=== PATIENT | female | born 1985 | race African-American/Black ===

== ENCOUNTER 2016-11-22 08:11 | Emergency (ER) | payer OTHER ==
[~2016-11-22] VITALS: Ht 160 cm; Wt 70.8 kg
--- NOTE | ~2016-11-22 | EKG ---
[place] [address] [place] [address] ELECTROCARDIOGRAM REPORT Name: BILL OLIVER Room #: [facility]#: [id number] Admission: Attend Phys: Discharge: Date of : 87 Report #: [id number] THIS REPORT FOR: //name// 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1985 Requested By: Kasia Alvarado Order Number: [id number] MD: Sanjiv Lentz Measurements Intervals [place] Rate: 101 P: 45 CT: 139 QRS: 20 QRSD: 87 T: 7 QT: 338 QTc: 439 Interpretive Statements Sinus tachycardia RSR' in V1 or V2, probably normal variant Compared to ECG 09/28/2016 00:01:09 RSR' in V1 or V2 now present Electronically Signed On 11-22-2016 8:53:43 MIXING PLANT OPERATOR by Sanjiv Lentz [email or web address] <ELECTRONICALLY SIGNED> By: Sanjiv Lentz MD, [facility] 11/22/1653 0 0 Sanjiv Lentz MD, FACC /EPI
[~2016-11-22 08:11] MED LIST: ACCUNEB SO1.25 MG/1 INH; ADVAIR HFA115 MCG/21 INH; DUONEB 2.5-0.5 M3 ML INH; HYDROCODONE-AP1 EAC6 PO; NABUMETONE 750750 M1 PO; NEBULIZER; PREDNISONE 10 M10 M1 PO; PREDNISONE 20 M20 MG PO; TRAMADOL 50 MG50 MG PO; TRINATE TABLET1 TAB PO; VENTOLIN HFA 1818 GM INH
[2016-11-22 09:12] VITALS: BP 107/67
== END 2016-11-22 09:33 | disposition home or self-care (01) ==
LOC: ER 08:11
DX: I47.1 Supraventricular tachycardia (principal); J45.909 Unspecified asthma, uncomplicated; Z98.890 Other specified postprocedural states

== ENCOUNTER 2016-11-26 15:38 | Emergency (ER) | payer OTHER ==
[~2016-11-26] VITALS: Ht 160 cm; Wt 71.7 kg
--- NOTE | ~2016-11-26 | EKG ---
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 : 1985 Requested By: Amanda Velez Order Number: [id number] MD: Sanjiv Lentz Measurements Intervals [place] Rate: 101 P: 36 [place]: 144 QRS: 13 QRSD: 72 T: 18 QT: 322 QTc: 418 Interpretive Statements Sinus tachycardia RSR' in V1 or V2, probably normal variant Compared to ECG 11/22/2016 08:21:29 No significant changes Electronically Signed On 11-27-2016 7:59:20 SPACE BUYER by Sanjiv Lentz [email or web address] <ELECTRONICALLY SIGNED> By: Sanjiv Lentz MD, [facility] 11/27/16 0759 1548 1548 Sanjiv Lentz MD, FAC /EPI
[2016-11-26] MEDS ORDERED: LABETALOL 100100 MG GT (17:21)
[2016-11-26 17:47] LABS: URINE BILIRUBIN NEGATIVE (Negative); URINE BLOOD 2+ (Negative); URINE COLOR YELLOW; URINE GLUCOSE-RANDOM* NEGATIVE (Negative); URINE KETONES 1+ (Negative); URINE NITRITE NEGATIVE (Negative); URINE PROTEIN (DIPSTICK) NEGATIVE (Negative); URINE SPECIFIC GRAVITY >= 1.030 (1.003-1.035)
[2016-11-26 18:01] LABS: BACTERIA 1-9 Few /HPF (None Seen); CASTS None Seen /LPF (None Seen); CRYSTALS None Seen /LPF (None Seen); SQUAMOUS 4-10 Moderate /LPF (0-3); URINE RBC 3-10 Few /HPF (0-2); URINE WBC 0-5 Rare /HPF (0-5)
[2016-11-26 18:16] VITALS: BP 112/67
[2016-11-28 17:10] LABS: CHLAMYDIA TRACHOMATIS-PCR Negative (Negative); NEISSERIA GONORRHEA-PCR Negative (Negative)
== END 2016-11-26 18:20 | disposition home or self-care (01) ==
LOC: ER 15:38
PROVIDERS: Physician Assistant
DX: O20.0 Threatened abortion (principal); I47.1 Supraventricular tachycardia; J45.909 Unspecified asthma, uncomplicated; F10.99 Alcohol use, unspecified with unspecified alcohol-induced disorder; Z98.890 Other specified postprocedural states; Z3A.01 Less than 8 weeks gestation of pregnancy

== ENCOUNTER 2017-05-07 20:24 | Emergency (ER) | payer OTHER ==
[~2017-05-07] VITALS: Ht 160 cm; Wt 72.6 kg
[~2017-05-07 20:24] MED LIST changes: +IPRATROPIU0.2 MG/1 M IH; +LABETALOL 100100 MG GT
[2017-05-07 20:32] VITALS: BP 123/75
[2017-05-07] MEDS ORDERED: PENICILLIN V P500 MG PO (22:14)
[2017-05-07] MEDS ORDERED: MOBIC15 MG PO (22:14)
== END 2017-05-07 22:14 | disposition home or self-care (01) ==
LOC: ER 20:24
DX: S02.5XXA Fracture of tooth (traumatic), initial encounter for closed fracture (principal); K02.9 Dental caries, unspecified; J45.909 Unspecified asthma, uncomplicated; I47.1 Supraventricular tachycardia; F10.99 Alcohol use, unspecified with unspecified alcohol-induced disorder; Z98.890 Other specified postprocedural states; X58.XXXA Exposure to other specified factors, initial encounter; Y93.89 Activity, other specified; Y92.89 Other specified places as the place of occurrence of the external cause; Y99.8 Other external cause status

== ENCOUNTER 2017-05-08 19:53 | Emergency (ER) | payer OTHER ==
[~2017-05-08] VITALS: Ht 160 cm; Wt 72.6 kg
--- NOTE | ~2017-05-08 | EKG ---
[place] [address] [facility] [place] [address] ELECTROCARDIOGRAM REPORT Name: BILL OLIVER Room #: [facility]#: [id number] Admission: 05/08/17 Attend Phys: Discharge: 05/08/17 Date of : 87 Report #: [id number] THIS REPORT FOR: //name// 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 : 1985 Requested By: Lalit Davila Order Number: [id number] MD: Sanjiv Lentz Measurements Intervals [place] Rate: 105 P: 29 ID: 158 QRS: 15 QRSD: 94 T: 19 QT: 335 QTc: 443 Interpretive Statements Sinus tachycardia RSR' in V1 or V2, right VCD Baseline wander in lead(s) V4 Compared to ECG 11/26/2016 15:48:46 no significant change was found Electronically Signed On 05-09-2017 8:01:27 CDT by Sanjiv Lentz [email or web address] <ELECTRONICALLY SIGNED> By: Sanjiv Lentz MD, [facility] 05/09/17 0801 00 00 Sanjiv Lentz MD, [facility] /EPI
[~2017-05-08 19:53] MED LIST changes: +MOBIC15 MG PO; +PENICILLIN V P500 MG PO
[2017-05-08 21:53] VITALS: BP 97/49
== END 2017-05-08 21:57 | disposition home or self-care (01) ==
LOC: ER 19:53
DX: I47.1 Supraventricular tachycardia (principal); J45.909 Unspecified asthma, uncomplicated; F10.99 Alcohol use, unspecified with unspecified alcohol-induced disorder; Z98.890 Other specified postprocedural states

== ENCOUNTER 2017-06-21 04:42 | Emergency (ER) | payer OTHER ==
[~2017-06-21] VITALS: Ht 160 cm; Wt 74.8 kg
--- NOTE | ~2017-06-21 | EKG ---
[place] [address] [address] [facility] [place] [address] ELECTROCARDIOGRAM REPORT Name: BILL OLIVER Room #: [facility]#: [id number] Admission: 06/21/17 Attend Phys: Discharge: 06/21/17 Date of : 87 Report #: [id number] THIS REPORT FOR: //name// [facility] ED Test Date: 2017-06-21 Test Time: 04:51:57 Pat Name: BILL OLIVER Department: Room: Gender: F Validation Specialist: juliano : 1985 Requested By: Jose Garber Order Number: [id number] MD: Keyshawn Farnsworth Measurements Intervals [place] Rate: 79 P: 26 [place]: 142 QRS: 1 QRSD: 97 T: 13 QT: 365 QTc: 419 Interpretive Statements Sinus rhythm Atrial premature complex RSR' in V1 or V2, right VCD or RVH Compared to ECG 05/08/2017 20:01:02 Atrial premature complex(es) now present Right ventricular hypertrophy now present Sinus tachycardia no longer present Electronically Signed On 06-24-2017 21:56:44 CDT by Keyshawn Farnsworth [email or web address] <ELECTRONICALLY SIGNED> By: Keyshawn Farnsworth MD 06/24/17 2156 0451 0451 Keyshawn Farnsworth MD /EPI
[2017-06-21] MEDS ORDERED: PROVENTIL HFA6.7 G1 INH (04:52)
[2017-06-21 05:17] LABS: ABSOLUTE NEUTROPHILS 4.2 thou/uL (1.4-8.2); BASOPHILS 1.1 % (0.0-2.0); EOSINOPHILS 8.1 % (0.0-3.0); HEMATOCRIT 36.8 % (37.0-47.0); HEMOGLOBIN 12.1 gm/dL (12.0-15.0); LYMPHOCYTES 27.8 % (24.0-44.0); MCH 29.8 pg (26.0-34.0); MCV 90.4 fL (80.0-100.0); MONOCYTES 6.8 % (1.0-8.0); PLATELET COUNT 314 thou/uL (150-400); POLYS 56.2 % (36.0-66.0); RBC 4.07 mil/uL (4.20-5.00); RDW 13.3 % (10.5-14.5); WBC 7.5 thou/uL (4.0-11.0)
[2017-06-21 05:20] LABS: MANUAL DIFF NO
[2017-06-21 05:23] LABS: ANION GAP 9 mmol/L (7-16); BUN 10 mg/dL (7-18); CALCIUM 8.9 mg/dL (8.5-10.1); CHLORIDE 105 mmol/L (98-107); CO2 26 mmol/L (21-32); CREATININE 0.8 mg/dL (0.6-1.0); GLUCOSE 107 mg/dL (74-106); POTASSIUM 3.6 mmol/L (3.5-5.1); SODIUM 140 mmol/L (136-145)
[2017-06-21 05:37] LABS: ALBUMIN 3.8 g/dL (3.4-5.0); ALKALINE PHOSPHATASE 116 U/L (46-116); MAGNESIUM 1.9 mg/dL (1.8-2.4); NT-PRO BRAIN NAT PEPTIDE 18 pg/mL (<300); SGOT 14 U/L (15-37); SGPT 18 U/L (30-65); TOTAL BILIRUBIN 0.2 mg/dL (<0.1-1.0); TOTAL PROTEIN 7.4 g/dL (6.4-8.2); TROPONIN-I < 0.04 ng/mL (<0.04-0.07)
[2017-06-21] MEDS ORDERED: ATIVAN0.5 MG PO (05:46)
[2017-06-21 05:55] VITALS: BP 112/56
== END 2017-06-21 05:34 | disposition home or self-care (01) ==
LOC: ER 04:42
PROVIDERS: Emergency Medicine
DX: R00.2 Palpitations (principal); F41.9 Anxiety disorder, unspecified; I49.1 Atrial premature depolarization; Z98.890 Other specified postprocedural states; J45.909 Unspecified asthma, uncomplicated; F10.10 Alcohol abuse, uncomplicated

== ENCOUNTER 2017-12-20 01:37 | Emergency (ER) | payer OTHER ==
[~2017-12-20] VITALS: Ht 160 cm; Wt 70.3 kg
[~2017-12-20 01:37] MED LIST changes: +ATIVAN0.5 MG PO; +BENTYL 20 MG TA20 M1 PO; +PHENERGAN 25 MG25 M1 PO; +PROVENTIL HFA6.7 G1 INH
[2017-12-20] MEDS ORDERED: PROAIR HFA8.5 GM INH (02:27)
[2017-12-20] MEDS ORDERED: PREDNISONE 20 M20 MG PO (02:27)
[2017-12-20 02:44] VITALS: BP 113/65
[2017-12-20] MEDS ORDERED: DUONEB 2.5-0.5 M3 ML INH (02:50)
[2017-12-20] MEDS ORDERED: ADVAIR 250-501 EACH INH (02:50)
== END 2017-12-20 02:57 | disposition home or self-care (01) ==
LOC: ER 01:37
DX: J45.901 Unspecified asthma with (acute) exacerbation (principal); Z90.49 Acquired absence of other specified parts of digestive tract

== ENCOUNTER 2018-02-18 02:16 | Emergency (ER) | payer OTHER ==
[~2018-02-18] VITALS: Ht 160 cm; Wt 67.1 kg
--- NOTE | ~2018-02-18 | EKG ---
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1985 Requested By: Florentino Tirado Order Number: [id number] MD: Keyshawn Farnsworth Measurements Intervals [place] Rate: 72 P: 16 [place]: 131 QRS: 12 QRSD: 97 T: 15 QT: 386 QTc: 423 Interpretive Statements Sinus rhythm Compared to ECG 06/21/2017 04:51:57 Atrial premature complex(es) no longer present Right ventricular hypertrophy no longer present Electronically Signed On 02-18-2018 17:09:39 CDT by Keyshawn Farnsworth [email or web address] <ELECTRONICALLY SIGNED> By: Keyshawn Farnsworth MD 02/18/18 1709 0250 0250 Keyshawn Farnsworth MD /CHAU
[~2018-02-18 02:16] MED LIST changes: +ADVAIR 250-501 EACH INH; +PROAIR HFA8.5 GM INH
[2018-02-18 02:55] LABS: ABSOLUTE NEUTROPHILS 4.6 thou/uL (1.4-8.2); BASOPHILS 1.2 % (0.0-2.0); EOSINOPHILS 7.3 % (0.0-3.0); HEMATOCRIT 33.9 % (37.0-47.0); HEMOGLOBIN 11.5 gm/dL (12.0-15.0); LYMPHOCYTES 28.4 % (24.0-44.0); MCH 30.7 pg (26.0-34.0); MCV 90.3 fL (80.0-100.0); MONOCYTES 7.9 % (1.0-8.0); PLATELET COUNT 274 thou/uL (150-400); POLYS 55.2 % (36.0-66.0); RBC 3.75 mil/uL (4.20-5.00); RDW 13.5 % (10.5-14.5); WBC 8.3 thou/uL (4.0-11.0)
[2018-02-18 03:02] LABS: ANION GAP 7 mmol/L (7-16); BUN 14 mg/dL (7-18); CHLORIDE 109 mmol/L (98-107); CO2 26 mmol/L (21-32); CREATININE 0.7 mg/dL (0.6-1.0); GLUCOSE 109 mg/dL (74-106); POTASSIUM 3.7 mmol/L (3.5-5.1); SODIUM 142 mmol/L (136-145)
[2018-02-18 03:11] LABS: TROPONIN-I < 0.04 ng/mL (<0.06)
[2018-02-18 03:51] VITALS: BP 104/60
== END 2018-02-18 03:51 | disposition home or self-care (01) ==
LOC: ER 02:16
PROVIDERS: Emergency Medicine
DX: R07.89 Other chest pain (principal); J45.909 Unspecified asthma, uncomplicated; Z90.49 Acquired absence of other specified parts of digestive tract

== ENCOUNTER 2018-02-20 22:05 | Emergency (ER) | payer OTHER ==
[~2018-02-20] VITALS: Ht 160 cm; Wt 67.1 kg
--- NOTE | ~2018-02-20 | EKG ---
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 : 1985 Requested By: Rik Farmer Order Number: [id number] MD: Sanjiv Lentz Measurements Intervals [place] Rate: 76 P: 22 [place]: 134 QRS: 11 QRSD: 94 T: 25 QT: 377 QTc: 424 Interpretive Statements Sinus rhythm RSR' in V1 or V2, probably normal variant Baseline wander in lead(s) V1 Compared to ECG 02/18/2018 02:50:22 No significant changes Electronically Signed On 02-21-2018 8:35:09 CDT by Sanjiv Lentz [email or web address] <ELECTRONICALLY SIGNED> By: Sanjiv Lentz MD, [facility] 02/21/18 0835 2210 221 Sanjiv Lentz MD, [facility] /EPI
[2018-02-20 23:07] LABS: ABSOLUTE NEUTROPHILS 5.1 thou/uL (1.4-8.2); BASOPHILS 0.7 % (0.0-2.0); EOSINOPHILS 7.7 % (0.0-3.0); HEMATOCRIT 34.5 % (37.0-47.0); HEMOGLOBIN 11.6 gm/dL (12.0-15.0); LYMPHOCYTES 28.5 % (24.0-44.0); MCH 30.5 pg (26.0-34.0); MCHC 33.7 g/dL (28.0-37.0); MCV 90.5 fL (80.0-100.0); MONOCYTES 6.8 % (1.0-8.0); PLATELET COUNT 278 thou/uL (150-400); POLYS 56.3 % (36.0-66.0); RBC 3.81 mil/uL (4.20-5.00); RDW 13.2 % (10.5-14.5)
[2018-02-20 23:09] LABS: ANION GAP 9 mmol/L (7-16); BUN 15 mg/dL (7-18); CALCIUM 8.7 mg/dL (8.5-10.1); CHLORIDE 104 mmol/L (98-107); CO2 29 mmol/L (21-32); CREATININE 0.8 mg/dL (0.6-1.0); GLUCOSE 100 mg/dL (74-106); POTASSIUM 3.6 mmol/L (3.5-5.1); SODIUM 142 mmol/L (136-145)
[2018-02-20 23:17] LABS: ALBUMIN 3.6 g/dL (3.4-5.0); SGOT 11 U/L (15-37); SGPT 14 U/L (30-65); TOTAL BILIRUBIN 0.2 mg/dL (<0.1-1.0); TOTAL PROTEIN 6.9 g/dL (6.4-8.2); TROPONIN-I < 0.04 ng/mL (<0.06)
[2018-02-20 23:56] VITALS: BP 109/53
== END 2018-02-20 23:58 | disposition home or self-care (01) ==
LOC: ER 22:05
PROVIDERS: Emergency Medicine
DX: R07.9 Chest pain, unspecified (principal); J45.909 Unspecified asthma, uncomplicated

== ENCOUNTER 2021-04-20 22:18 | Emergency (ER) | payer OTHER ==
[~2021-04-20] VITALS: Ht 160 cm; Wt 71.2 kg
[2021-04-20 23:28] LABS: ABSOLUTE NEUTROPHILS 6.4 thou/uL (1.4-8.2); BASOPHILS 0.5 % (0.0-2.0); EOSINOPHILS 7.4 % (0.0-3.0); HEMATOCRIT 35.7 % (37.0-47.0); HEMOGLOBIN 12.2 gm/dL (12.0-15.0); LYMPHOCYTES 25.3 % (24.0-44.0); MCH 31.7 pg (26.0-34.0); MCHC 34.1 g/dL (28.0-37.0); MONOCYTES 5.9 % (1.0-8.0); PLATELET COUNT 258 thou/uL (150-400); POLYS 60.9 % (36.0-66.0); RBC 3.83 mil/uL (4.20-5.00); RDW 13.2 % (10.5-14.5); WBC 10.5 thou/uL (4.0-11.0)
[2021-04-20 23:31] LABS: CREATININE 0.5 mg/dL (0.6-1.0); POTASSIUM 3.9 mmol/L (3.5-5.1)
[2021-04-21 00:38] LABS: URINE BILIRUBIN NEGATIVE (Negative); URINE BLOOD NEGATIVE (Negative); URINE CLARITY CLEAR; URINE COLOR YELLOW; URINE GLUCOSE-RANDOM* NEGATIVE (Negative); URINE KETONES NEGATIVE (Negative); URINE LEUKOCYTES-REFLEX NEGATIVE (Negative); URINE NITRITE-REFLEX NEGATIVE (Negative); URINE PROTEIN (DIPSTICK) NEGATIVE (Negative); URINE SPECIFIC GRAVITY >= 1.030 (1.005-1.035); URINE UROBILINOGEN 0.2 E.U./dl (0.2-1.0)
[2021-04-21] MEDS ORDERED: PROAIR HFA8.5 GM INH (01:28)
[2021-04-21] MEDS ORDERED: ROXICODONE15 MG PO (01:29)
[2021-04-21] MEDS ORDERED: IPRAT-ALBUT 0.5-3 ML INH (01:29)
[2021-04-21 01:53] VITALS: BP 105/53
== END 2021-04-21 01:55 | disposition home or self-care (01) ==
LOC: ER 22:18
PROVIDERS: Emergency Medicine
DX: O20.0 Threatened abortion (principal); Z3A.12 12 weeks gestation of pregnancy

== ENCOUNTER 2021-08-25 18:20 | Emergency (ER) | payer OTHER ==
[~2021-08-25] VITALS: Ht 190.5 cm; Wt 67.1 kg
[~2021-08-25 18:20] MED LIST changes: +IPRAT-ALBUT 0.5-3 ML INH; +ROXICODONE15 MG PO
[2021-08-25 18:22] VITALS: BP 118/63
[2021-08-25] MEDS ORDERED: SINGULAIR 10 MG10 M1 PO (18:28)
[2021-08-25] MEDS ORDERED: MIRALAX17 GM PO (19:09)
== END 2021-08-25 19:35 | disposition home or self-care (01) ==
LOC: ER 18:20
DX: O26.893 Other specified pregnancy related conditions, third trimester (principal); Z3A.28 28 weeks gestation of pregnancy; K59.00 Constipation, unspecified; Z90.49 Acquired absence of other specified parts of digestive tract; J45.909 Unspecified asthma, uncomplicated; Z79.51 Long term (current) use of inhaled steroids; Z79.899 Other long term (current) drug therapy; Z79.891 Long term (current) use of opiate analgesic